=== PATIENT | female | born 1955 | race African-American/Black ===

== ENCOUNTER 2020-10-26 21:49 | Inpatient (IN) | payer MEDICAID, OTHER ==
[~2020-10-26] VITALS: Ht 167.6 cm; Wt 59.1 kg
[2020-10-27] VITALS (7 sets, daily range): BP systolic 140–185; BP diastolic 63–94
[2020-10-27] MEDS ORDERED: ONDANSETRON HCL 4MG/2ML INJ IV STA (02:28)
[2020-10-27] MEDS ORDERED: MORPHINE SULFATE 4 MG/ML CPJ (NOT FOR IM USE) IV STA (02:28)
[2020-10-27] MEDS ORDERED: VANCOMYCIN 1 G PREMIX 200 ML IV ONE (02:30)
[2020-10-27] MEDS ORDERED: SODIUM CHLORIDE 0.9% 1,000 ML IV ONE (02:30)
[2020-10-27] MEDS ORDERED: PIPERACILLIN/TAZ 3.375G PREMIX 50 ML IV ONE (02:30)
[2020-10-27 03:42] LABS: BASOPHILS % 0.5 % (0.0-2.0); CHLORIDE 99 mEq/L (98-107); EOSINOPHILS % 0.3 % (0.0-5.0); HEMATOCRIT. 34.2 % (36.0-48.0); HEMOGLOBIN. 11.5 g/dL (12.0-16.0); LYMPHOCYTES % 11.1 % (20.0-50.0); MEAN CORPUSCULAR HEMOGLOBIN 31.2 pg (28.0-32.0); MEAN CORPUSCULAR VOLUME 92.8 fL (81.0-99.0); MEAN PLATELET VOLUME 6.8 fl (7.4-10.4); MONOCYTES % 9.5 % (2.0-8.0); NEUTROPHILS % 78.6 % (40.0-76.0); PLATELET 367 x1000/uL (130-400); RED BLOOD CELL COUNT 3.68 mill/uL (4.2-5.4); RED CELL DISTRIBUTION WIDTH 13.4 % (11.6-14.6)
[2020-10-27 04:39] LABS: PROTHROMBIN TIME 10.7 sec (9.6-11.0)
[2020-10-27] MEDS ORDERED: IPRATROPIUM/ALBUTEROL 0.5-3(2.5)MG/3ML NEB NEB PRN (08:00)
[2020-10-27] MEDS ORDERED: VANCOMYCIN 1 G PREMIX 200 ML IV SCH (08:00)
[2020-10-27] MEDS ORDERED: DOCUSATE SODIUM 100MG CAPSULE PO PRN (08:00)
[2020-10-27] MEDS ORDERED: GUAIFENESIN 200MG/10ML SUGAR FREE UDC PO PRN (08:00)
[2020-10-27] MEDS ORDERED: DIPHENHYDRAMINE 50MG/ML VIAL IV PRN (08:00)
[2020-10-27] MEDS ORDERED: NA PHOS,M-B/NA PHOS,DI-BA ENEMA 118ML PR PRN (08:00)
[2020-10-27] MEDS ORDERED: ONDANSETRON HCL 4MG/2ML INJ IV PRN ×2 (08:00→18:45)
[2020-10-27] MEDS ORDERED: DEXTROSE 50% WATER 50ML SYRINGE IV PRN (08:00)
[2020-10-27] MEDS ORDERED: PIPERACILLIN/TAZ 3.375G PREMIX 50 ML IV SCH ×2 (08:00→09:00)
[2020-10-27] MEDS ORDERED: LORAZEPAM 2MG/ML CPJ IV PRN (08:00)
[2020-10-27] MEDS ORDERED: MAGNESIUM/ALUMINUM HYDROXIDE/SIMETHICONE 30ML UDC PO PRN (08:00)
[2020-10-27] MEDS ORDERED: CLONIDINE 0.1MG TABLET PO PRN (08:00)
[2020-10-27] MEDS: BLOOD SUGAR DIAGNOSTIC STRIP TEST SCH ×4 (08:29→20:02)
[2020-10-27] MEDS: INSULIN LISPRO 100 UNITS/ML SUBCUT SCH ×4 (08:34→20:53)
[2020-10-27] MEDS: ENOXAPARIN 40MG/0.4ML SYR SUBCUT SCH (08:35)
[2020-10-27] MEDS: HYDRALAZINE 20MG/ML VIAL IV PRN ×2 (08:36→16:34)
[2020-10-27] MEDS ORDERED: VANCOMYCIN 750 MG PREMIX 150 ML IV SCH (09:00)
[2020-10-27] MEDS: HYDROCODONE/ACETAMINOPHEN 5/325MG TABLET PO PRN (11:08)
[2020-10-27] MEDS: SODIUM CHLORIDE 0.9% INJ 3ML FLUSH IVF SCH ×2 (14:25→21:22)
[2020-10-27] MEDS ORDERED: BENA10TA74 MT (14:51)
[2020-10-27] MEDS ORDERED: ALEN35TA MT (14:51)
[2020-10-27] MEDS ORDERED: ANAS1TAB49 MT (14:52)
[2020-10-27] MEDS ORDERED: ASPI-986 MT (14:53)
[2020-10-27] MEDS ORDERED: HYDR25TA MT (14:53)
[2020-10-27] MEDS ORDERED: ASPI-1497 PO (14:53)
[2020-10-27] MEDS ORDERED: NAPR375T5 MT (14:53)
[2020-10-27] MEDS ORDERED: GLIM1TAB MT (14:55)
[2020-10-27] MEDS ORDERED: AMLO10TA80 PO (14:55)
[2020-10-27] MEDS ORDERED: GABA-529 MT (14:55)
[2020-10-27] MEDS ORDERED: LIDOCAINE HCL 1% 20ML VIAL (Pyxis) INJ ONE (14:57)
[2020-10-27] MEDS ORDERED: BACITRACIN 50,000 UNITS/VIAL ONE (14:58)
[2020-10-27] MEDS ORDERED: BUPIVACAINE HCL/PF 0.5% (5MG/ML) 10ML ONE (14:58)
[2020-10-27] MEDS ORDERED: *PATIENT'S OWN MEDICATION STORAGE XX SCH (15:15)
[2020-10-27] MEDS: PIPERACILLIN/TAZOBACTAM 3.375 G in DEXT 5% WATER 100 ML IV SCH ×2 (16:30→21:13)
[2020-10-27] MEDS ORDERED: FENTANYL CITRATE/PF 50MCG/ML 2ML VIAL ONE (17:45)
[2020-10-27] MEDS ORDERED: MIDAZOLAM HCL 2 MG/2 ML VIAL ONE (17:45)
[2020-10-27] MEDS ORDERED: PROPOFOL 200MG/20ML VIAL IV ONE (17:45)
[2020-10-27] MEDS: VANCOMYCIN 750 MG PREMIX 150 ML IV SCH (18:00)
[2020-10-27] MEDS ORDERED: MEPERIDINE HCL/PF 25MG/ML CPJ IV PRN (18:45)
[2020-10-27] MEDS ORDERED: LABETALOL 5MG/ML SYR 20 MG/4 ML SYRINGE IV PRN (18:45)
[2020-10-27] MEDS ORDERED: HYDROMORPHONE HCL/PF 2MG/ML CPJ IV PRN (18:45)
[2020-10-27] MEDS ORDERED: ONDANSETRON HCL 4MG/2ML INJ ONE (18:55)
[2020-10-27] MEDS ORDERED: DEXAMETHASONE 4MG/ML 1ML VIAL ONE (18:55)
[2020-10-27 21:47] LABS: CREATINE KINASE 67 IU/L (26-192)
[2020-10-27 21:48] LABS: CREATINE KINASE MB FRACTION < 1.0 ng/mL (0.5-3.6)
[2020-10-27] MEDS: MORPHINE SULFATE 2 MG/ML CPJ (NOT FOR IM USE) IV PRN (22:49)
[2020-10-28] VITALS (12 sets, daily range): BP systolic 139–180; BP diastolic 66–91
[2020-10-28] MEDS: PIPERACILLIN/TAZOBACTAM 3.375 G in DEXT 5% WATER 100 ML IV SCH ×3 (03:05→20:40)
[2020-10-28] MEDS: VANCOMYCIN 750 MG PREMIX 150 ML IV SCH ×2 (05:46→21:25)
[2020-10-28] MEDS: SODIUM CHLORIDE 0.9% INJ 3ML FLUSH IVF SCH ×2 (05:47→13:01)
[2020-10-28] MEDS: BLOOD SUGAR DIAGNOSTIC STRIP TEST SCH ×4 (05:58→20:37)
[2020-10-28 06:21] LABS: BASOPHILS % 0.8 % (0.0-2.0); EOSINOPHILS % 0.2 % (0.0-5.0); HEMATOCRIT. 31.1 % (36.0-48.0); HEMOGLOBIN. 10.7 g/dL (12.0-16.0); LYMPHOCYTES % 12.2 % (20.0-50.0); MEAN CORPUSCULAR HEMOGLOBIN 31.8 pg (28.0-32.0); MEAN CORPUSCULAR VOLUME 92.4 fL (81.0-99.0); MEAN PLATELET VOLUME 6.4 fl (7.4-10.4); NEUTROPHILS % 77.8 % (40.0-76.0); PLATELET 345 x1000/uL (130-400); RED BLOOD CELL COUNT 3.37 mill/uL (4.2-5.4); RED CELL DISTRIBUTION WIDTH 13.4 % (11.6-14.6)
[2020-10-28 06:29] LABS: CHLORIDE 102 mEq/L (98-107)
[2020-10-28 06:39] LABS: LDL CHOLESTEROL 60 mg/dL (5-100)
[2020-10-28 06:40] LABS: CREATINE KINASE 51 IU/L (26-192); CREATINE KINASE MB FRACTION < 1.0 ng/mL (0.5-3.6); HDL CHOLESTEROL 69 mg/dL (40-59); T4 FREE 1.16 ng/dL (0.76-1.46)
[2020-10-28] MEDS: ENOXAPARIN 40MG/0.4ML SYR SUBCUT SCH (09:11)
[2020-10-28] MEDS: INSULIN LISPRO 100 UNITS/ML SUBCUT SCH ×4 (09:11→21:06)
[2020-10-28] MEDS: MORPHINE SULFATE 2 MG/ML CPJ (NOT FOR IM USE) IV PRN (09:16)
[2020-10-28] MEDS: HYDROCODONE/ACETAMINOPHEN 5/325MG TABLET PO PRN ×3 (11:48→21:21)
[2020-10-28] MEDS: AMLODIPINE 10MG TABLET PO SCH (11:51)
[2020-10-28] MEDS: BENAZEPRIL 10MG TABLET PO SCH (11:51)
[2020-10-28] MEDS: GABAPENTIN 100MG CAPSULE PO SCH ×3 (11:51→17:36)
[2020-10-28] MEDS: HYDROCHLOROTHIAZIDE 25MG TABLET PO SCH (11:52)
[2020-10-28] MEDS: INSULIN GLARGINE UD 100 UNITS/ML SYR SUBCUT SCH (11:56)
[2020-10-28] MEDS ORDERED: TETANUS, DIPHTHERIA, PERTUSSIS VAC/PF 0.5ML (>7YR OLD) IM ONE (14:30)
[2020-10-29] VITALS (13 sets, daily range): BP systolic 118–166; BP diastolic 78–116
[2020-10-29] MEDS: HYDROCODONE/ACETAMINOPHEN 5/325MG TABLET PO PRN ×5 (01:24→20:10)
[2020-10-29] MEDS: SODIUM CHLORIDE 0.9% INJ 3ML FLUSH IVF SCH ×4 (03:33→21:37)
[2020-10-29] MEDS: PIPERACILLIN/TAZOBACTAM 3.375 G in DEXT 5% WATER 100 ML IV SCH ×4 (03:33→21:00)
[2020-10-29] MEDS: BLOOD SUGAR DIAGNOSTIC STRIP TEST SCH ×4 (06:29→20:41)
[2020-10-29 07:28] LABS: BASOPHILS % 0.3 % (0.0-2.0); EOSINOPHILS % 0.6 % (0.0-5.0); HEMATOCRIT. 31.2 % (36.0-48.0); HEMOGLOBIN. 10.7 g/dL (12.0-16.0); LYMPHOCYTES % 16.6 % (20.0-50.0); MEAN CORPUSCULAR HEMOGLOBIN 31.5 pg (28.0-32.0); MEAN CORPUSCULAR VOLUME 92.1 fL (81.0-99.0); MEAN PLATELET VOLUME 6.8 fl (7.4-10.4); NEUTROPHILS % 72.5 % (40.0-76.0); PLATELET 350 x1000/uL (130-400); RED BLOOD CELL COUNT 3.39 mill/uL (4.2-5.4); RED CELL DISTRIBUTION WIDTH 13.4 % (11.6-14.6)
[2020-10-29 08:01] LABS: CHLORIDE 101 mEq/L (98-107)
[2020-10-29] MEDS: VANCOMYCIN 750 MG PREMIX 150 ML IV SCH (09:28)
[2020-10-29] MEDS: GABAPENTIN 100MG CAPSULE PO SCH ×3 (09:28→17:28)
[2020-10-29] MEDS: ENOXAPARIN 40MG/0.4ML SYR SUBCUT SCH (09:29)
[2020-10-29] MEDS: AMLODIPINE 10MG TABLET PO SCH (09:30)
[2020-10-29] MEDS: BENAZEPRIL 10MG TABLET PO SCH (09:30)
[2020-10-29] MEDS: INSULIN LISPRO 100 UNITS/ML SUBCUT SCH ×4 (09:31→21:30)
[2020-10-29] MEDS: HYDROCHLOROTHIAZIDE 25MG TABLET PO SCH (09:36)
[2020-10-29] MEDS: INSULIN GLARGINE UD 100 UNITS/ML SYR SUBCUT SCH (12:39)
[2020-10-29 16:00] LABS: CHLORIDE 99 mEq/L (98-107)
[2020-10-29] MEDS ORDERED: VANCOMYCIN 750 MG PREMIX 150 ML IV SCH (17:00)
[2020-10-29] MEDS: VANCOMYCIN 1 G PREMIX 200 ML IV SCH (21:36)
[2020-10-30] VITALS (12 sets, daily range): BP systolic 106–159; BP diastolic 40–88
[2020-10-30] MEDS: HYDROCODONE/ACETAMINOPHEN 5/325MG TABLET PO PRN ×4 (01:32→21:41)
[2020-10-30] MEDS: PIPERACILLIN/TAZOBACTAM 3.375 G in DEXT 5% WATER 100 ML IV SCH ×2 (04:12→10:26)
[2020-10-30] MEDS: BLOOD SUGAR DIAGNOSTIC STRIP TEST SCH ×4 (06:50→21:00)
[2020-10-30] MEDS: SODIUM CHLORIDE 0.9% INJ 3ML FLUSH IVF SCH ×3 (07:02→22:22)
[2020-10-30] MEDS: VANCOMYCIN 1 G PREMIX 200 ML IV SCH ×2 (09:21→21:27)
[2020-10-30] MEDS: ENOXAPARIN 40MG/0.4ML SYR SUBCUT SCH (09:21)
[2020-10-30] MEDS: HYDROCHLOROTHIAZIDE 25MG TABLET PO SCH (09:22)
[2020-10-30] MEDS: AMLODIPINE 10MG TABLET PO SCH (09:22)
[2020-10-30] MEDS: GABAPENTIN 100MG CAPSULE PO SCH ×3 (09:22→18:15)
[2020-10-30] MEDS: BENAZEPRIL 10MG TABLET PO SCH (09:22)
[2020-10-30] MEDS: ACETAMINOPHEN 325MG TABLET PO PRN (09:23)
[2020-10-30] MEDS: INSULIN LISPRO 100 UNITS/ML SUBCUT SCH ×4 (09:24→21:22)
[2020-10-30] MEDS ORDERED: IOHEXOL-350 100 ML BOTTLE ONE ×2 (10:12→15:00)
[2020-10-30] MEDS: INSULIN GLARGINE UD 100 UNITS/ML SYR SUBCUT SCH (10:28)
[2020-10-30] MEDS: CEFTRIAXONE 2 G in DEXTROSE 5% WATER 50 ML IV SCH (16:46)
[2020-10-30] MEDS: METRONIDAZOLE 500MG TABLET PO SCH (21:27)
[2020-10-31] VITALS (9 sets, daily range): BP systolic 123–152; BP diastolic 62–79
[2020-10-31] MEDS: ACETAMINOPHEN 325MG TABLET PO PRN ×2 (00:38→09:56)
[2020-10-31] MEDS: HYDROCODONE/ACETAMINOPHEN 5/325MG TABLET PO PRN ×4 (02:14→21:20)
[2020-10-31] MEDS: SODIUM CHLORIDE 0.9% INJ 3ML FLUSH IVF SCH ×3 (06:10→21:20)
[2020-10-31 06:41] LABS: HEMATOCRIT 30.3 % (36.0-48.0); HEMOGLOBIN 10.4 g/dL (12.0-16.0); MEAN CORPUSCULAR HEMOGLOBIN 31.5 pg (28.0-32.0); MEAN CORPUSCULAR VOLUME 91.8 fL (81.0-99.0); PLATELET 401 x1000/uL (130-400); RED BLOOD CELL COUNT 3.31 mill/uL (4.2-5.4); RED CELL DISTRIBUTION WIDTH 13.1 % (11.6-14.6)
[2020-10-31] MEDS: BLOOD SUGAR DIAGNOSTIC STRIP TEST SCH ×4 (06:50→20:25)
[2020-10-31 07:00] LABS: CHLORIDE 99 mEq/L (98-107)
[2020-10-31] MEDS: GABAPENTIN 100MG CAPSULE PO SCH ×3 (09:32→17:01)
[2020-10-31] MEDS: HYDROCHLOROTHIAZIDE 25MG TABLET PO SCH (09:32)
[2020-10-31] MEDS: AMLODIPINE 10MG TABLET PO SCH (09:32)
[2020-10-31] MEDS: METRONIDAZOLE 500MG TABLET PO SCH ×2 (09:32→21:20)
[2020-10-31] MEDS: BENAZEPRIL 10MG TABLET PO SCH (09:32)
[2020-10-31] MEDS: ENOXAPARIN 40MG/0.4ML SYR SUBCUT SCH (09:33)
[2020-10-31] MEDS: CEFTRIAXONE 2 G in DEXTROSE 5% WATER 50 ML IV SCH (09:33)
[2020-10-31] MEDS: INSULIN LISPRO 100 UNITS/ML SUBCUT SCH ×4 (10:35→21:16)
[2020-10-31] MEDS: INSULIN GLARGINE UD 100 UNITS/ML SYR SUBCUT SCH (10:50)
[2020-10-31] MEDS: VANCOMYCIN 1 G PREMIX 200 ML IV SCH ×2 (11:48→21:20)
[2020-11-01] VITALS (12 sets, daily range): BP systolic 105–168; BP diastolic 54–86
[2020-11-01] MEDS: ACETAMINOPHEN 325MG TABLET PO PRN ×3 (00:28→21:01)
[2020-11-01] MEDS: BLOOD SUGAR DIAGNOSTIC STRIP TEST SCH ×4 (06:38→20:55)
[2020-11-01] MEDS: SODIUM CHLORIDE 0.9% INJ 3ML FLUSH IVF SCH ×3 (06:43→23:08)
[2020-11-01] MEDS: INSULIN LISPRO 100 UNITS/ML SUBCUT SCH ×4 (06:44→21:21)
[2020-11-01] MEDS: HYDROCODONE/ACETAMINOPHEN 5/325MG TABLET PO PRN ×2 (06:44→18:32)
[2020-11-01] MEDS: VANCOMYCIN 1 G PREMIX 200 ML IV SCH ×2 (09:48→21:20)
[2020-11-01] MEDS: CEFTRIAXONE 2 G in DEXTROSE 5% WATER 50 ML IV SCH (09:48)
[2020-11-01] MEDS: GABAPENTIN 100MG CAPSULE PO SCH ×3 (09:49→17:39)
[2020-11-01] MEDS: ENOXAPARIN 40MG/0.4ML SYR SUBCUT SCH (09:50)
[2020-11-01] MEDS: HYDROCHLOROTHIAZIDE 25MG TABLET PO SCH (09:50)
[2020-11-01] MEDS: BENAZEPRIL 10MG TABLET PO SCH (09:50)
[2020-11-01] MEDS: AMLODIPINE 10MG TABLET PO SCH (09:50)
[2020-11-01] MEDS: METRONIDAZOLE 500MG TABLET PO SCH ×2 (09:53→21:01)
[2020-11-01] MEDS: INSULIN GLARGINE UD 100 UNITS/ML SYR SUBCUT SCH (10:00)
[2020-11-01] MEDS ORDERED: INSULIN GLARGINE UD 100 UNITS/ML SYR SUBCUT NR ×2 (17:15→20:00)
[2020-11-01] MEDS ORDERED: INSULIN LISPRO 100 UNITS/ML SUBCUT ONE (17:30)
[2020-11-01 20:45] LABS: CHLORIDE 97 mEq/L (98-107)
[2020-11-02] VITALS (7 sets, daily range): BP systolic 107–133; BP diastolic 56–73
[2020-11-02] MEDS: HYDROCODONE/ACETAMINOPHEN 5/325MG TABLET PO PRN (00:42)
[2020-11-02] MEDS: SODIUM CHLORIDE 0.9% INJ 3ML FLUSH IVF SCH ×2 (06:28→14:00)
[2020-11-02] MEDS: BLOOD SUGAR DIAGNOSTIC STRIP TEST SCH ×2 (06:35→11:50)
[2020-11-02] MEDS: INSULIN LISPRO 100 UNITS/ML SUBCUT SCH ×2 (07:20→12:20)
[2020-11-02] MEDS: ACETAMINOPHEN 325MG TABLET PO PRN ×2 (07:59→14:50)
[2020-11-02] MEDS: METRONIDAZOLE 500MG TABLET PO SCH (09:00)
[2020-11-02] MEDS: BENAZEPRIL 10MG TABLET PO SCH (11:59)
[2020-11-02] MEDS: HYDROCHLOROTHIAZIDE 25MG TABLET PO SCH (11:59)
[2020-11-02] MEDS: GABAPENTIN 100MG CAPSULE PO SCH ×2 (11:59→13:00)
[2020-11-02] MEDS: CEFTRIAXONE 2 G in DEXTROSE 5% WATER 50 ML IV SCH (11:59)
[2020-11-02] MEDS: ENOXAPARIN 40MG/0.4ML SYR SUBCUT SCH (12:00)
[2020-11-02] MEDS: AMLODIPINE 10MG TABLET PO SCH (12:00)
[2020-11-02] MEDS: INSULIN GLARGINE UD 100 UNITS/ML SYR SUBCUT SCH (12:01)
[2021-02-14] MEDS ORDERED: ASPI-986 MT (19:10)
[2021-02-14] MEDS ORDERED: DIPH25CA83 MT (19:10)
[2021-02-14] MEDS ORDERED: GLIP5TAB12 PO (19:10)
[2021-02-14] MEDS ORDERED: METF-414 MT (19:10)
== END 2020-11-02 15:30 | disposition home health service (06) | DRG 314 ==
LOC: ER 21:49 → 3WST 10-27 06:17 → ENRESERV 10-27 09:27
PROVIDERS: ADMIT Internal Medicine; ATTEND Internal Medicine
PROC: 0Y6R0Z0 Detachment at Right 2nd Toe, Complete, Open Approach (ICD-10-PCS; principal; 2020-10-27)
PROC: 02HV33Z Insertion of Infusion Device into Superior Vena Cava, Percutaneous Approach (ICD-10-PCS; 2020-11-01)
PROC: B548ZZA Ultrasonography of Superior Vena Cava, Guidance (ICD-10-PCS; 2020-11-01)
PROC: B5181ZA Fluoroscopy of Superior Vena Cava using Low Osmolar Contrast, Guidance (ICD-10-PCS; 2020-11-01)
DX: E11.52 Type 2 diabetes mellitus with diabetic peripheral angiopathy with gangrene (principal); A48.0 Gas gangrene; E43 Unspecified severe protein-calorie malnutrition; E11.51 Type 2 diabetes mellitus with diabetic peripheral angiopathy without gangrene; E11.40 Type 2 diabetes mellitus with diabetic neuropathy, unspecified; E11.65 Type 2 diabetes mellitus with hyperglycemia; F17.200 Nicotine dependence, unspecified, uncomplicated; F41.9 Anxiety disorder, unspecified; I10 Essential (primary) hypertension; L03.115 Cellulitis of right lower limb; R65.10 Systemic inflammatory response syndrome (SIRS) of non-infectious origin without acute organ dysfunction; K59.00 Constipation, unspecified; M81.0 Age-related osteoporosis without current pathological fracture; Z79.4 Long term (current) use of insulin; Z90.11 Acquired absence of right breast and nipple; Z85.3 Personal history of malignant neoplasm of breast; Z91.14 Patient's other noncompliance with medication regimen; Z79.899 Other long term (current) drug therapy; Z79.84 Long term (current) use of oral hypoglycemic drugs; Z68.21 Body mass index [BMI] 21.0-21.9, adult; Z79.82 Long term (current) use of aspirin; Z20.828 Contact with and (suspected) exposure to other viral communicable diseases
CPT/HCPCS: 36415; 36573; 73630; 73718; 75635; 80048; 80053; 80061; 80202; 82550; 82553; 82962; 83605; 83735; 84145; 84439; 84443; 84484; 85025; 85027; 85651; 86140; 87070; 87075; 87077; 87186; 87426; 88305; 88311; 90715; 93923; 93970; 97022; 97116; 97162; 97530; 99291; C1725; C1769; J0360; J0696; J1100; J1650; J1815; J2060; J2250; J2270; J2405; J2543; J2704; J3010; J3370; J3490; J7030; J7060; Q9967

== ENCOUNTER 2022-10-17 14:18 | Emergency (ER) | payer MEDICAID ==
[~2022-10-17] VITALS: Ht 165.1 cm; Wt 60.0 kg
[~2022-10-17 14:18] MED LIST: ALEN35TA52 MT; AMLO10TA80 PO; ANAS1TAB49 MT; ASPI-1497 PO; ASPI-986 MT; BENA10TA74 MT; DIPH25CA83 MT; GABA-529 MT; GLIP5TAB12 PO; HYDR25TA MT; METF-414 MT; NAPR375T5 MT
[2022-10-17 14:21] VITALS: BP 141/100
== END 2022-10-17 21:28 | disposition left against medical advice (07) ==
LOC: ER 14:18
DX: I96 Gangrene, not elsewhere classified (principal); F12.10 Cannabis abuse, uncomplicated; E11.9 Type 2 diabetes mellitus without complications; I11.0 Hypertensive heart disease with heart failure; I50.9 Heart failure, unspecified; Z79.899 Other long term (current) drug therapy
CPT/HCPCS: 99281

== ENCOUNTER 2022-10-18 08:48 | Inpatient (IN) | payer MEDICAID ==
[~2022-10-18] VITALS: Ht 167.6 cm; Wt 87.3 kg
[2022-10-18] MEDS ORDERED: VANCOMYCIN 1G PREMIX 200 ML IV ONE (09:45)
[2022-10-18] MEDS ORDERED: PIPERACILLIN/TAZ 3.375G PREMIX 50 ML IV ONE (09:45)
[2022-10-18 10:01] LABS: CHLORIDE 104 mEq/L (98-107)
[2022-10-18 10:45] LABS: BASOPHILS % 0.2 % (0.0-2.0); HEMATOCRIT. 23.5 % (36.0-48.0); LYMPHOCYTES % 8.7 % (20.0-50.0); MEAN CORPUSCULAR HEMOGLOBIN 31.1 pg (28.0-32.0); MEAN CORPUSCULAR VOLUME 91.8 fL (81.0-99.0); MEAN PLATELET VOLUME 5.9 fl (7.4-10.4); MONOCYTES % 7.4 % (2.0-8.0); NEUTROPHILS % 82.7 % (40.0-76.0); PLATELET 524 x1000/uL (130-400); RED BLOOD CELL COUNT 2.56 mill/uL (4.2-5.4); RED CELL DISTRIBUTION WIDTH 14.4 % (11.6-14.6)
[2022-10-18 10:51] LABS: INR 1.1; PROTHROMBIN TIME 11.5 sec (9.6-11.0)
[2022-10-18] MEDS ORDERED: AMLODIPINE 10MG TABLET PO ONE (12:15)
[2022-10-18] MEDS ORDERED: IPRATROPIUM/ALBUTEROL 0.5-3(2.5)MG/3ML NEB HHN PRN (14:15)
[2022-10-18] MEDS ORDERED: ONDANSETRON HCL 4MG/2ML INJ IV PRN (14:15)
[2022-10-18] MEDS ORDERED: DIPHENHYDRAMINE 50MG/ML VIAL IV PRN (14:15)
[2022-10-18] MEDS ORDERED: SODIUM POLYSTYRENE SULFONATE 15 G/60 ML BOT PO NR (14:15)
[2022-10-18] MEDS ORDERED: PIPERACILLIN/TAZ 3.375G PREMIX 50 ML IV NR ×2 (14:15→21:30)
[2022-10-18] MEDS ORDERED: DEXTROSE 50% WATER 50ML SYRINGE IV PRN (16:15)
[2022-10-18] MEDS: INSULIN LISPRO 100 UNITS/ML SUBCUT SCH ×2 (17:37→20:44)
[2022-10-18] MEDS: CLONIDINE 0.1MG TABLET PO PRN (17:38)
[2022-10-18] MEDS: BLOOD SUGAR DIAGNOSTIC STRIP TEST SCH ×2 (17:38→20:44)
[2022-10-18] MEDS: GABAPENTIN 100MG CAPSULE PO SCH (17:39)
[2022-10-18] MEDS: METFORMIN HCL 500MG TABLET PO SCH (17:39)
[2022-10-18] MEDS: DIPHENHYDRAMINE 25MG CAPSULE PO SCH (22:03)
[2022-10-19 05:12] LABS: BASOPHILS % 0.2 % (0.0-2.0); EOSINOPHILS % 1.7 % (0.0-5.0); HEMATOCRIT. 23.2 % (36.0-48.0); HEMOGLOBIN. 7.9 g/dL (12.0-16.0); LYMPHOCYTES % 15.3 % (20.0-50.0); MEAN CORPUSCULAR HEMOGLOBIN 30.9 pg (28.0-32.0); MEAN CORPUSCULAR VOLUME 90.6 fL (81.0-99.0); MONOCYTES % 9.4 % (2.0-8.0); NEUTROPHILS % 73.4 % (40.0-76.0); PLATELET 527 x1000/uL (130-400); RED BLOOD CELL COUNT 2.57 mill/uL (4.2-5.4); RED CELL DISTRIBUTION WIDTH 14.3 % (11.6-14.6)
[2022-10-19 05:28] LABS: CHLORIDE 107 mEq/L (98-107)
[2022-10-19] MEDS ORDERED: PIPERACILLIN/TAZOBACTAM 3.375 G in DEXTROSE 5% WATER 50 ML IV SCH (06:00)
[2022-10-19] MEDS ORDERED: ALENDRONATE SODIUM 35MG TABLET PO SCH (06:30)
[2022-10-19] MEDS: BLOOD SUGAR DIAGNOSTIC STRIP TEST SCH ×4 (08:00→21:30)
[2022-10-19] MEDS ORDERED: VANCOMYCIN 750MG PREMIX 150 ML IV SCH (08:00)
[2022-10-19] MEDS: GLIPIZIDE 5MG TABLET PO SCH (08:14)
[2022-10-19] MEDS: METFORMIN HCL 500MG TABLET PO SCH ×2 (08:14→16:52)
[2022-10-19] MEDS ORDERED: HYDROCHLOROTHIAZIDE 25MG TABLET PO SCH (09:00)
[2022-10-19] MEDS ORDERED: BENAZEPRIL 10MG TABLET PO SCH (09:00)
[2022-10-19] MEDS: INSULIN LISPRO 100 UNITS/ML SUBCUT SCH ×4 (09:15→21:30)
[2022-10-19] MEDS: AMLODIPINE 10MG TABLET PO SCH (09:39)
[2022-10-19] MEDS: GABAPENTIN 100MG CAPSULE PO SCH ×3 (09:39→16:52)
[2022-10-19] MEDS: ANASTROZOLE 1 MG TABLET PO SCH (09:59)
[2022-10-19] MEDS ORDERED: VANCOMYCIN 1G PREMIX 200 ML IV NR (10:00)
[2022-10-19 12:00] VITALS: BP 164/78
[2022-10-19] MEDS: CLONIDINE 0.1MG TABLET PO PRN ×2 (12:35→18:35)
[2022-10-19] MEDS: ACETAMINOPHEN 325MG TABLET PO PRN (15:45)
[2022-10-19 16:00] VITALS: BP 166/73
[2022-10-19] MEDS: PIPERACILLIN/TAZOBACTAM 3.375 G in DEXTROSE 5% WATER 50 ML IV SCH ×2 (17:03→21:29)
[2022-10-19 20:00] VITALS: BP 135/50
[2022-10-19] MEDS: DIPHENHYDRAMINE 25MG CAPSULE PO SCH (21:29)
[2022-10-20] VITALS: BP 157/70
[2022-10-20 04:00] VITALS: BP 152/70
[2022-10-20] MEDS: BLOOD SUGAR DIAGNOSTIC STRIP TEST SCH ×4 (06:16→21:08)
[2022-10-20] MEDS: METFORMIN HCL 500MG TABLET PO SCH (06:16)
[2022-10-20] MEDS: GLIPIZIDE 5MG TABLET PO SCH (06:16)
[2022-10-20] MEDS: PIPERACILLIN/TAZOBACTAM 3.375 G in DEXTROSE 5% WATER 50 ML IV SCH ×3 (06:16→22:41)
[2022-10-20] MEDS: INSULIN LISPRO 100 UNITS/ML SUBCUT SCH ×4 (06:17→21:00)
[2022-10-20] MEDS: ACETAMINOPHEN 325MG TABLET PO PRN (06:25)
[2022-10-20 08:00] VITALS: BP 147/63
[2022-10-20] MEDS: GABAPENTIN 100MG CAPSULE PO SCH ×3 (10:56→18:05)
[2022-10-20] MEDS: AMLODIPINE 10MG TABLET PO SCH (10:56)
[2022-10-20] MEDS: ANASTROZOLE 1 MG TABLET PO SCH (11:20)
[2022-10-20 11:22] LABS: BASOPHILS % 0.4 % (0.0-2.0); EOSINOPHILS % 2.4 % (0.0-5.0); HEMATOCRIT. 22.4 % (36.0-48.0); HEMOGLOBIN. 7.6 g/dL (12.0-16.0); LYMPHOCYTES % 16.9 % (20.0-50.0); MEAN CORPUSCULAR HEMOGLOBIN 31.3 pg (28.0-32.0); MEAN CORPUSCULAR VOLUME 91.8 fL (81.0-99.0); MEAN PLATELET VOLUME 6.2 fl (7.4-10.4); MONOCYTES % 10.1 % (2.0-8.0); NEUTROPHILS % 70.2 % (40.0-76.0); PLATELET 513 x1000/uL (130-400); RED BLOOD CELL COUNT 2.44 mill/uL (4.2-5.4); RED CELL DISTRIBUTION WIDTH 14.5 % (11.6-14.6)
[2022-10-20] MEDS: SODIUM CHLORIDE 0.9% 1,000 ML IV SCH ×2 (11:26→22:41)
[2022-10-20] MEDS ORDERED: NALOXONE HCL 0.4MG/ML VIAL IV PRN (11:30)
[2022-10-20] MEDS: HYDROCODONE/ACETAMINOPHEN 5/325MG TABLET PO PRN ×2 (11:44→18:29)
[2022-10-20 12:00] VITALS: BP 161/75
[2022-10-20] MEDS ORDERED: IODIXANOL 320MG/ML 100 ML BOTTLE IV ONE (13:04)
[2022-10-20] MEDS ORDERED: LIDOCAINE HCL/PF 1% 10 MG/ML 5ML VIAL ONE (13:05)
[2022-10-20] MEDS ORDERED: FENTANYL CITRATE/PF 50MCG/ML 2ML VIAL ONE (13:05)
[2022-10-20] MEDS ORDERED: HEPARIN 1000 UNITS/ML 10ML ONE ×2 (13:05→13:12)
[2022-10-20] MEDS ORDERED: MIDAZOLAM HCL 2 MG/2 ML VIAL ONE (13:05)
[2022-10-20] MEDS ORDERED: LIDOCAINE HCL/PF 2% 20MG/ML 5 ML/VIAL ONE (13:12)
[2022-10-20] MEDS: CLOPIDOGREL 75MG TABLET PO SCH (14:45)
[2022-10-20 16:00] VITALS: BP 112/65
[2022-10-20] MEDS: CLONIDINE 0.1MG TABLET PO PRN (18:31)
[2022-10-20 20:00] VITALS: BP 149/68
[2022-10-20] MEDS: DIPHENHYDRAMINE 25MG CAPSULE PO SCH (21:02)
[2022-10-20] MEDS ORDERED: VANCOMYCIN 750MG PREMIX 150 ML IV SCH (22:00)
[2022-10-21] VITALS: BP 158/74
[2022-10-21 04:00] VITALS: BP 166/72
[2022-10-21] MEDS: PIPERACILLIN/TAZOBACTAM 3.375 G in DEXTROSE 5% WATER 50 ML IV SCH ×2 (05:43→13:19)
[2022-10-21 05:54] LABS: BASOPHILS % 0.2 % (0.0-2.0); EOSINOPHILS % 2.4 % (0.0-5.0); HEMOGLOBIN. 7.6 g/dL (12.0-16.0); LYMPHOCYTES % 17.4 % (20.0-50.0); MEAN CORPUSCULAR HEMOGLOBIN 31.6 pg (28.0-32.0); MEAN CORPUSCULAR VOLUME 91.2 fL (81.0-99.0); MEAN PLATELET VOLUME 6.4 fl (7.4-10.4); MONOCYTES % 9.2 % (2.0-8.0); NEUTROPHILS % 70.8 % (40.0-76.0); PLATELET 490 x1000/uL (130-400); RED BLOOD CELL COUNT 2.41 mill/uL (4.2-5.4); RED CELL DISTRIBUTION WIDTH 14.5 % (11.6-14.6)
[2022-10-21] MEDS: BLOOD SUGAR DIAGNOSTIC STRIP TEST SCH ×4 (06:30→21:17)
[2022-10-21] MEDS: INSULIN LISPRO 100 UNITS/ML SUBCUT SCH ×4 (06:30→21:00)
[2022-10-21 08:26] VITALS: BP 162/67
[2022-10-21] MEDS: AMLODIPINE 10MG TABLET PO SCH (08:27)
[2022-10-21] MEDS: CLOPIDOGREL 75MG TABLET PO SCH (08:27)
[2022-10-21] MEDS: GABAPENTIN 100MG CAPSULE PO SCH ×3 (08:27→17:07)
[2022-10-21] MEDS: ANASTROZOLE 1 MG TABLET PO SCH (09:00)
[2022-10-21] MEDS: SODIUM CHLORIDE 0.9% 1,000 ML IV SCH (11:08)
[2022-10-21 12:00] VITALS: BP 148/72
[2022-10-21] MEDS: HYDROCODONE/ACETAMINOPHEN 5/325MG TABLET PO PRN ×2 (13:19→21:02)
[2022-10-21 16:20] VITALS: BP 163/68
[2022-10-21 19:30] LABS: CREATINE KINASE 52 IU/L (26-192)
[2022-10-21 20:00] VITALS: BP 177/80
[2022-10-21] MEDS: DIPHENHYDRAMINE 25MG CAPSULE PO SCH (21:16)
[2022-10-21] MEDS: CLONIDINE 0.1MG TABLET PO PRN (21:16)
[2022-10-22] VITALS (7 sets, daily range): BP systolic 115–176; BP diastolic 58–78
[2022-10-22] MEDS ORDERED: VANCOMYCIN 500MG PREMIX 100 ML IV SCH
[2022-10-22] MEDS: PIPERACILLIN/TAZOBACTAM 3.375 G in DEXTROSE 5% WATER 50 ML IV SCH ×3 (01:11→13:07)
[2022-10-22] MEDS: ACETAMINOPHEN 325MG TABLET PO PRN (01:22)
[2022-10-22] MEDS: SODIUM CHLORIDE 0.9% 1,000 ML IV SCH ×2 (01:35→12:39)
[2022-10-22] MEDS: INSULIN LISPRO 100 UNITS/ML SUBCUT SCH ×4 (06:23→21:00)
[2022-10-22] MEDS: HYDROCODONE/ACETAMINOPHEN 5/325MG TABLET PO PRN ×3 (06:24→17:38)
[2022-10-22] MEDS: CLONIDINE 0.1MG TABLET PO PRN ×3 (06:24→21:05)
[2022-10-22] MEDS: BLOOD SUGAR DIAGNOSTIC STRIP TEST SCH ×4 (06:27→21:05)
[2022-10-22 07:13] LABS: BASOPHILS % 0.6 % (0.0-2.0); EOSINOPHILS % 3.4 % (0.0-5.0); LYMPHOCYTES % 17.5 % (20.0-50.0); MEAN CORPUSCULAR HEMOGLOBIN 31.1 pg (28.0-32.0); MEAN CORPUSCULAR VOLUME 92.8 fL (81.0-99.0); MEAN PLATELET VOLUME 6.1 fl (7.4-10.4); MONOCYTES % 9.4 % (2.0-8.0); NEUTROPHILS % 69.1 % (40.0-76.0); PLATELET 437 x1000/uL (130-400); RED BLOOD CELL COUNT 2.17 mill/uL (4.2-5.4); RED CELL DISTRIBUTION WIDTH 14.6 % (11.6-14.6)
[2022-10-22 07:57] LABS: HEMATOCRIT. 20.1 % (36.0-48.0); HEMOGLOBIN. 6.7 g/dL (12.0-16.0)
[2022-10-22] MEDS: ANASTROZOLE 1 MG TABLET PO SCH (09:00)
[2022-10-22] MEDS: CLOPIDOGREL 75MG TABLET PO SCH (09:29)
[2022-10-22] MEDS: AMLODIPINE 10MG TABLET PO SCH (09:29)
[2022-10-22] MEDS: GABAPENTIN 100MG CAPSULE PO SCH ×3 (09:30→17:37)
[2022-10-22] MEDS ORDERED: VANCOMYCIN 750MG PREMIX 150 ML IV SCH (18:00)
[2022-10-22 19:40] LABS: TOTAL IRON BINDING CAPACITY 123 ug/dL (250-450)
[2022-10-22] MEDS: DIPHENHYDRAMINE 25MG CAPSULE PO SCH (21:05)
[2022-10-22] MEDS: CEFAZOLIN 2,000 MG in DEXT 5% WATER 100 ML IV SCH (21:15)
[2022-10-23] VITALS: BP 157/64
[2022-10-23] MEDS: SODIUM CHLORIDE 0.9% 1,000 ML IV SCH ×2 (01:08→12:45)
[2022-10-23] MEDS: ACETAMINOPHEN 500MG TABLET PO PRN (01:48)
[2022-10-23] MEDS: CEFAZOLIN 2,000 MG in DEXT 5% WATER 100 ML IV SCH ×3 (03:58→20:20)
[2022-10-23 04:00] VITALS: BP 175/76
[2022-10-23] MEDS: HYDROCODONE/ACETAMINOPHEN 5/325MG TABLET PO PRN ×2 (04:30→20:20)
[2022-10-23] MEDS: CLONIDINE 0.1MG TABLET PO PRN ×2 (06:49→21:31)
[2022-10-23] MEDS: BLOOD SUGAR DIAGNOSTIC STRIP TEST SCH ×4 (06:49→20:29)
[2022-10-23] MEDS: INSULIN LISPRO 100 UNITS/ML SUBCUT SCH ×4 (07:10→20:29)
[2022-10-23 07:23] LABS: BASOPHILS % 0.5 % (0.0-2.0); EOSINOPHILS % 4.3 % (0.0-5.0); HEMATOCRIT. 21.5 % (36.0-48.0); HEMOGLOBIN. 7.3 g/dL (12.0-16.0); LYMPHOCYTES % 16.5 % (20.0-50.0); MEAN CORPUSCULAR HEMOGLOBIN 31.3 pg (28.0-32.0); MEAN CORPUSCULAR VOLUME 91.9 fL (81.0-99.0); MONOCYTES % 7.3 % (2.0-8.0); NEUTROPHILS % 71.4 % (40.0-76.0); PLATELET 454 x1000/uL (130-400); RED BLOOD CELL COUNT 2.34 mill/uL (4.2-5.4); RED CELL DISTRIBUTION WIDTH 14.7 % (11.6-14.6)
[2022-10-23 08:00] VITALS: BP 110/64
[2022-10-23] MEDS: ANASTROZOLE 1 MG TABLET PO SCH ×2 (09:00→11:04)
[2022-10-23] MEDS: AMLODIPINE 10MG TABLET PO SCH (09:12)
[2022-10-23] MEDS: GABAPENTIN 100MG CAPSULE PO SCH ×3 (09:12→16:59)
[2022-10-23] MEDS: CLOPIDOGREL 75MG TABLET PO SCH (09:12)
[2022-10-23 12:00] VITALS: BP_SYST 158; BP_SYST 167; BP_DIAS 61
[2022-10-23] MEDS ORDERED: LIDOCAINE HCL 1% 10 MG/ML 10ML VIAL ONE ×2 (15:02→16:02)
[2022-10-23] MEDS ORDERED: BACITRACIN 15GM TUBE TOP ONE (15:02)
[2022-10-23] MEDS ORDERED: POLYMYXIN B SULFATE 500000 UNITS/VIAL ONE (15:02)
[2022-10-23] MEDS ORDERED: BUPIVACAINE HCL/PF 0.5% (5MG/ML) 10ML ONE (15:03)
[2022-10-23] MEDS ORDERED: MIDAZOLAM HCL 2 MG/2 ML VIAL ONE ×2 (16:01→17:00)
[2022-10-23] MEDS ORDERED: PROPOFOL 200MG/20ML VIAL IV ONE ×2 (16:02→17:25)
[2022-10-23] MEDS ORDERED: VANCOMYCIN HCL 1 GM/VIAL ONE (17:30)
[2022-10-23] MEDS ORDERED: GENTAMICIN SULF 40MG/ML 2ML VIAL ONE (17:30)
[2022-10-23] MEDS ORDERED: ONDANSETRON HCL 4MG/2ML INJ IV PRN (17:45)
[2022-10-23] MEDS ORDERED: FENTANYL CITRATE/PF 50MCG/ML 2ML VIAL IV PRN (17:45)
[2022-10-23] MEDS ORDERED: HYDRALAZINE 20MG/ML VIAL IV NR (18:30)
[2022-10-23 20:00] VITALS: BP 185/96
[2022-10-23] MEDS: DIPHENHYDRAMINE 25MG CAPSULE PO SCH (20:20)
[2022-10-24] VITALS: BP 171/78
[2022-10-24] MEDS: HYDROCODONE/ACETAMINOPHEN 5/325MG TABLET PO PRN ×3 (02:30→20:20)
[2022-10-24] MEDS: SODIUM CHLORIDE 0.9% 1,000 ML IV SCH ×2 (02:34→12:43)
[2022-10-24] MEDS: CEFAZOLIN 2,000 MG in DEXT 5% WATER 100 ML IV SCH ×2 (03:51→11:12)
[2022-10-24 04:00] VITALS: BP 110/68
[2022-10-24] MEDS: BLOOD SUGAR DIAGNOSTIC STRIP TEST SCH ×4 (06:03→21:37)
[2022-10-24] MEDS: INSULIN LISPRO 100 UNITS/ML SUBCUT SCH ×4 (06:50→21:00)
[2022-10-24 07:31] LABS: BASOPHILS % 0.5 % (0.0-2.0); EOSINOPHILS % 3.5 % (0.0-5.0); HEMATOCRIT. 21.7 % (36.0-48.0); HEMOGLOBIN. 7.3 g/dL (12.0-16.0); LYMPHOCYTES % 13.1 % (20.0-50.0); MEAN CORPUSCULAR HEMOGLOBIN 30.9 pg (28.0-32.0); MEAN CORPUSCULAR VOLUME 92.3 fL (81.0-99.0); MEAN PLATELET VOLUME 6.1 fl (7.4-10.4); MONOCYTES % 8.4 % (2.0-8.0); NEUTROPHILS % 74.5 % (40.0-76.0); PLATELET 463 x1000/uL (130-400); RED BLOOD CELL COUNT 2.35 mill/uL (4.2-5.4); RED CELL DISTRIBUTION WIDTH 14.5 % (11.6-14.6)
[2022-10-24 08:00] VITALS: BP 130/61
[2022-10-24 08:33] LABS: PHOSPHORUS 4.1 mg/dL (2.5-4.9)
[2022-10-24] MEDS: AMLODIPINE 10MG TABLET PO SCH (08:48)
[2022-10-24] MEDS: ANASTROZOLE 1 MG TABLET PO SCH (08:48)
[2022-10-24] MEDS: GABAPENTIN 100MG CAPSULE PO SCH ×3 (08:48→17:00)
[2022-10-24] MEDS: CLOPIDOGREL 75MG TABLET PO SCH (08:48)
[2022-10-24 12:00] VITALS: BP 176/56
[2022-10-24] MEDS: CLONIDINE 0.1MG TABLET PO PRN ×2 (12:44→20:19)
[2022-10-24] MEDS ORDERED: CLOP75TA15 PO (14:22)
[2022-10-24] MEDS ORDERED: HYDR-4135 PO (14:22)
[2022-10-24] MEDS ORDERED: HYDR-4001 MT (14:22)
[2022-10-24 16:00] VITALS: BP 115/70
[2022-10-24] MEDS: CEFTRIAXONE 2 G in DEXTROSE 5% WATER 50 ML IV SCH (17:00)
[2022-10-24] MEDS: HYDRALAZINE HCL 50MG TABLET PO SCH ×2 (17:01→21:36)
[2022-10-24 20:00] VITALS: BP 164/70
[2022-10-24 20:16] LABS: CLARITY URINE CLOUDY (CLEAR); COLOR URINE YELLOW (YELLOW); KETONES URINE TRACE (NEGATIVE); LEUKOCYTE ESTERASE URINE TRACE (NEGATIVE); NITRITE URINE NEGATIVE (NEGATIVE); OCCULT BLOOD URINE 1+ (NEGATIVE); PROTEIN URINE 4+ (NEGATIVE); SPECIFIC GRAVITY URINE 1.021 (1.005-1.030); UROBILINOGEN URINE 0.2 E.U./dL (0.2-1.0)
[2022-10-24] MEDS: DIPHENHYDRAMINE 25MG CAPSULE PO SCH (20:18)
[2022-10-25] VITALS (9 sets, daily range): BP systolic 102–196; BP diastolic 66–93
[2022-10-25] MEDS: HYDRALAZINE HCL 50MG TABLET PO SCH ×3 (05:22→22:04)
[2022-10-25] MEDS: HYDROCODONE/ACETAMINOPHEN 5/325MG TABLET PO PRN (05:22)
[2022-10-25] MEDS: SODIUM CHLORIDE 0.9% 1,000 ML IV SCH ×2 (05:33→13:29)
[2022-10-25] MEDS: BLOOD SUGAR DIAGNOSTIC STRIP TEST SCH ×4 (06:17→22:00)
[2022-10-25] MEDS: INSULIN LISPRO 100 UNITS/ML SUBCUT SCH ×4 (06:34→22:00)
[2022-10-25 08:11] LABS: BASOPHILS % 0.4 % (0.0-2.0); EOSINOPHILS % 2.6 % (0.0-5.0); HEMOGLOBIN. 7.1 g/dL (12.0-16.0); MEAN CORPUSCULAR VOLUME 92.3 fL (81.0-99.0); MEAN PLATELET VOLUME 6.1 fl (7.4-10.4); MONOCYTES % 8.3 % (2.0-8.0); NEUTROPHILS % 72.7 % (40.0-76.0); PLATELET 479 x1000/uL (130-400); RED BLOOD CELL COUNT 2.22 mill/uL (4.2-5.4); RED CELL DISTRIBUTION WIDTH 15.1 % (11.6-14.6)
[2022-10-25 08:17] LABS: HEMATOCRIT. 20.5 % (36.0-48.0)
[2022-10-25 08:48] LABS: PHOSPHORUS 3.6 mg/dL (2.5-4.9)
[2022-10-25] MEDS: AMLODIPINE 10MG TABLET PO SCH (09:00)
[2022-10-25] MEDS: GABAPENTIN 100MG CAPSULE PO SCH ×3 (09:59→18:04)
[2022-10-25] MEDS: ACETAMINOPHEN 500MG TABLET PO PRN ×3 (10:16→22:18)
[2022-10-25] MEDS: ANASTROZOLE 1 MG TABLET PO SCH (10:16)
[2022-10-25] MEDS: CLOPIDOGREL 75MG TABLET PO SCH (11:57)
[2022-10-25] MEDS: CEFTRIAXONE 2 G in DEXTROSE 5% WATER 50 ML IV SCH (18:04)
[2022-10-25] MEDS: CLONIDINE 0.1MG TABLET PO PRN (18:20)
[2022-10-25] MEDS: DIPHENHYDRAMINE 25MG CAPSULE PO SCH (22:03)
[2022-10-26] VITALS (8 sets, daily range): BP systolic 132–187; BP diastolic 71–89
[2022-10-26] MEDS: ACETAMINOPHEN 500MG TABLET PO PRN ×4 (02:33→23:57)
[2022-10-26] MEDS: SODIUM CHLORIDE 0.9% 1,000 ML IV SCH ×2 (02:36→15:12)
[2022-10-26] MEDS: HYDRALAZINE HCL 50MG TABLET PO SCH ×3 (05:05→22:35)
[2022-10-26] MEDS: ALENDRONATE SODIUM 35MG TABLET PO SCH (06:00)
[2022-10-26] MEDS: BLOOD SUGAR DIAGNOSTIC STRIP TEST SCH ×4 (06:18→21:34)
[2022-10-26] MEDS: INSULIN LISPRO 100 UNITS/ML SUBCUT SCH ×5 (06:18→21:41)
[2022-10-26 08:53] LABS: BASOPHILS % 0.6 % (0.0-2.0); EOSINOPHILS % 3.5 % (0.0-5.0); HEMATOCRIT. 24.8 % (36.0-48.0); HEMOGLOBIN. 8.5 g/dL (12.0-16.0); LYMPHOCYTES % 15.7 % (20.0-50.0); MEAN CORPUSCULAR HEMOGLOBIN 31.5 pg (28.0-32.0); MEAN CORPUSCULAR VOLUME 91.4 fL (81.0-99.0); MEAN PLATELET VOLUME 6.3 fl (7.4-10.4); MONOCYTES % 8.5 % (2.0-8.0); NEUTROPHILS % 71.7 % (40.0-76.0); PLATELET 489 x1000/uL (130-400); RED BLOOD CELL COUNT 2.71 mill/uL (4.2-5.4); RED CELL DISTRIBUTION WIDTH 15.7 % (11.6-14.6)
[2022-10-26 09:22] LABS: PHOSPHORUS 3.7 mg/dL (2.5-4.9)
[2022-10-26] MEDS: AMLODIPINE 10MG TABLET PO SCH (09:29)
[2022-10-26] MEDS: GABAPENTIN 100MG CAPSULE PO SCH ×3 (09:29→16:21)
[2022-10-26] MEDS: CLOPIDOGREL 75MG TABLET PO SCH (09:29)
[2022-10-26] MEDS: ANASTROZOLE 1 MG TABLET PO SCH (11:06)
[2022-10-26] MEDS: CLONIDINE 0.1MG TABLET PO PRN (16:21)
[2022-10-26] MEDS: CEFTRIAXONE 2 G in DEXTROSE 5% WATER 50 ML IV SCH (16:21)
[2022-10-26] MEDS ORDERED: NALOXONE HCL 0.4MG/ML VIAL IV PRN (19:15)
[2022-10-26] MEDS ORDERED: CLONIDINE 0.1MG TABLET PO NR (19:15)
[2022-10-26] MEDS: HYDROCODONE/ACETAMINOPHEN 5/325MG TABLET PO PRN (20:10)
[2022-10-26] MEDS: DIPHENHYDRAMINE 25MG CAPSULE PO SCH (21:34)
[2022-10-27] VITALS (7 sets, daily range): BP systolic 149–176; BP diastolic 62–87
[2022-10-27] MEDS: CLONIDINE 0.1MG TABLET PO PRN ×2 (01:10→17:46)
[2022-10-27] MEDS: HYDRALAZINE HCL 50MG TABLET PO SCH ×3 (05:23→22:08)
[2022-10-27] MEDS: ACETAMINOPHEN 500MG TABLET PO PRN (05:23)
[2022-10-27] MEDS: SODIUM CHLORIDE 0.9% 1,000 ML IV SCH ×2 (05:24→18:00)
[2022-10-27] MEDS: CLOPIDOGREL 75MG TABLET PO SCH (09:17)
[2022-10-27] MEDS: ANASTROZOLE 1 MG TABLET PO SCH (09:18)
[2022-10-27] MEDS: AMLODIPINE 10MG TABLET PO SCH (09:18)
[2022-10-27] MEDS: GABAPENTIN 100MG CAPSULE PO SCH ×3 (09:19→17:49)
[2022-10-27] MEDS: BLOOD SUGAR DIAGNOSTIC STRIP TEST SCH ×4 (12:00→20:46)
[2022-10-27] MEDS: INSULIN LISPRO 100 UNITS/ML SUBCUT SCH ×4 (12:15→22:09)
[2022-10-27] MEDS: CEFTRIAXONE 2 G in DEXTROSE 5% WATER 50 ML IV SCH (18:00)
[2022-10-27] MEDS: IPRATROPIUM/ALBUTEROL 0.5-3(2.5)MG/3ML NEB HHN PRN (18:46)
[2022-10-27] MEDS ORDERED: LABETALOL HCL 100MG TABLET PO NR (20:00)
[2022-10-27] MEDS: DIPHENHYDRAMINE 25MG CAPSULE PO SCH (20:46)
[2022-10-27] MEDS: HYDROCODONE/ACETAMINOPHEN 5/325MG TABLET PO PRN (22:07)
[2022-10-28 04:00] VITALS: BP 159/74
[2022-10-28] MEDS: HYDRALAZINE HCL 50MG TABLET PO SCH ×3 (06:29→20:53)
[2022-10-28] MEDS: INSULIN LISPRO 100 UNITS/ML SUBCUT SCH ×4 (06:35→20:53)
[2022-10-28 06:56] LABS: BASOPHILS % 0.6 % (0.0-2.0); EOSINOPHILS % 2.9 % (0.0-5.0); HEMATOCRIT. 25.3 % (36.0-48.0); HEMOGLOBIN. 8.4 g/dL (12.0-16.0); LYMPHOCYTES % 16.8 % (20.0-50.0); MEAN CORPUSCULAR HEMOGLOBIN 30.5 pg (28.0-32.0); MEAN CORPUSCULAR VOLUME 91.8 fL (81.0-99.0); MEAN PLATELET VOLUME 6.1 fl (7.4-10.4); MONOCYTES % 7.9 % (2.0-8.0); NEUTROPHILS % 71.8 % (40.0-76.0); PLATELET 490 x1000/uL (130-400); RED BLOOD CELL COUNT 2.76 mill/uL (4.2-5.4); RED CELL DISTRIBUTION WIDTH 15.9 % (11.6-14.6)
[2022-10-28 07:24] LABS: PHOSPHORUS 4.3 mg/dL (2.5-4.9)
[2022-10-28 07:28] VITALS: BP 180/87
[2022-10-28] MEDS: HYDROCODONE/ACETAMINOPHEN 5/325MG TABLET PO PRN ×2 (07:28→16:44)
[2022-10-28] MEDS: CLONIDINE 0.1MG TABLET PO PRN (07:52)
[2022-10-28 08:00] VITALS: BP 180/80
[2022-10-28] MEDS: BLOOD SUGAR DIAGNOSTIC STRIP TEST SCH ×4 (09:00→20:53)
[2022-10-28] MEDS: CLOPIDOGREL 75MG TABLET PO SCH (09:00)
[2022-10-28] MEDS: AMLODIPINE 10MG TABLET PO SCH (09:09)
[2022-10-28] MEDS: GABAPENTIN 100MG CAPSULE PO SCH ×3 (09:10→16:22)
[2022-10-28] MEDS: ANASTROZOLE 1 MG TABLET PO SCH (09:10)
[2022-10-28 12:00] VITALS: BP 140/85
[2022-10-28 16:00] VITALS: BP 132/82
[2022-10-28] MEDS: CEFTRIAXONE 2 G in DEXTROSE 5% WATER 50 ML IV SCH (16:22)
[2022-10-28 20:00] VITALS: BP 154/69
[2022-10-28] MEDS: DIPHENHYDRAMINE 25MG CAPSULE PO SCH (20:52)
[2022-10-28] MEDS: ACETAMINOPHEN 500MG TABLET PO PRN (20:52)
[2022-10-29 00:06] VITALS: BP 146/54
[2022-10-29 04:00] VITALS: BP 144/74
[2022-10-29] MEDS: HYDROCODONE/ACETAMINOPHEN 5/325MG TABLET PO PRN ×2 (05:14→12:33)
[2022-10-29] MEDS: HYDRALAZINE HCL 50MG TABLET PO SCH ×3 (05:15→21:24)
[2022-10-29] MEDS: IPRATROPIUM/ALBUTEROL 0.5-3(2.5)MG/3ML NEB HHN PRN (05:29)
[2022-10-29] MEDS: INSULIN LISPRO 100 UNITS/ML SUBCUT SCH ×4 (07:00→21:29)
[2022-10-29 07:16] LABS: BASOPHILS % 0.6 % (0.0-2.0); EOSINOPHILS % 2.2 % (0.0-5.0); HEMATOCRIT. 24.2 % (36.0-48.0); HEMOGLOBIN. 8.1 g/dL (12.0-16.0); LYMPHOCYTES % 25.4 % (20.0-50.0); MEAN CORPUSCULAR VOLUME 92.4 fL (81.0-99.0); MEAN PLATELET VOLUME 6.1 fl (7.4-10.4); MONOCYTES % 7.4 % (2.0-8.0); NEUTROPHILS % 64.4 % (40.0-76.0); PLATELET 471 x1000/uL (130-400); RED BLOOD CELL COUNT 2.62 mill/uL (4.2-5.4); RED CELL DISTRIBUTION WIDTH 15.4 % (11.6-14.6)
[2022-10-29 08:00] VITALS: BP 142/60
[2022-10-29 08:07] LABS: PHOSPHORUS 4.3 mg/dL (2.5-4.9)
[2022-10-29] MEDS: GABAPENTIN 100MG CAPSULE PO SCH ×3 (09:22→16:50)
[2022-10-29] MEDS: ANASTROZOLE 1 MG TABLET PO SCH (09:22)
[2022-10-29] MEDS: AMLODIPINE 10MG TABLET PO SCH (09:22)
[2022-10-29] MEDS: CLOPIDOGREL 75MG TABLET PO SCH (09:22)
[2022-10-29 12:00] VITALS: BP 152/36
[2022-10-29] MEDS: BLOOD SUGAR DIAGNOSTIC STRIP TEST SCH ×4 (12:00→21:17)
[2022-10-29 16:00] VITALS: BP 150/68
[2022-10-29] MEDS ORDERED: SODIUM POLYSTYRENE SULFONATE 15 G/60 ML BOT PO NR (16:15)
[2022-10-29] MEDS: CEFTRIAXONE 2 G in DEXTROSE 5% WATER 50 ML IV SCH (16:50)
[2022-10-29 20:00] VITALS: BP 156/81
[2022-10-29] MEDS: ACETAMINOPHEN 500MG TABLET PO PRN (21:24)
[2022-10-29] MEDS: DIPHENHYDRAMINE 25MG CAPSULE PO SCH (21:24)
[2022-10-30] VITALS (7 sets, daily range): BP systolic 108–162; BP diastolic 60–88
[2022-10-30] MEDS: IPRATROPIUM/ALBUTEROL 0.5-3(2.5)MG/3ML NEB HHN PRN (03:10)
[2022-10-30] MEDS: BLOOD SUGAR DIAGNOSTIC STRIP TEST SCH ×4 (05:07→21:35)
[2022-10-30] MEDS: INSULIN LISPRO 100 UNITS/ML SUBCUT SCH ×4 (05:09→21:00)
[2022-10-30] MEDS: HYDRALAZINE HCL 50MG TABLET PO SCH ×3 (05:12→21:37)
[2022-10-30] MEDS: ACETAMINOPHEN 500MG TABLET PO PRN ×2 (05:12→21:38)
[2022-10-30 06:20] LABS: BASOPHILS % 0.5 % (0.0-2.0); EOSINOPHILS % 2.1 % (0.0-5.0); HEMATOCRIT. 23.1 % (36.0-48.0); HEMOGLOBIN. 7.7 g/dL (12.0-16.0); LYMPHOCYTES % 20.5 % (20.0-50.0); MEAN CORPUSCULAR HEMOGLOBIN 31.1 pg (28.0-32.0); MEAN CORPUSCULAR VOLUME 93.4 fL (81.0-99.0); MEAN PLATELET VOLUME 5.8 fl (7.4-10.4); MONOCYTES % 10.3 % (2.0-8.0); NEUTROPHILS % 66.6 % (40.0-76.0); PLATELET 397 x1000/uL (130-400); RED BLOOD CELL COUNT 2.47 mill/uL (4.2-5.4); RED CELL DISTRIBUTION WIDTH 15.7 % (11.6-14.6)
[2022-10-30] MEDS: ANASTROZOLE 1 MG TABLET PO SCH (08:35)
[2022-10-30] MEDS: GABAPENTIN 100MG CAPSULE PO SCH ×3 (08:36→16:45)
[2022-10-30] MEDS: AMLODIPINE 10MG TABLET PO SCH (08:36)
[2022-10-30] MEDS: CLOPIDOGREL 75MG TABLET PO SCH (08:36)
[2022-10-30 09:22] LABS: PHOSPHORUS 4.3 mg/dL (2.5-4.9)
[2022-10-30] MEDS: CLONIDINE 0.1MG TABLET PO PRN (15:40)
[2022-10-30] MEDS: CEFTRIAXONE 2 G in DEXTROSE 5% WATER 50 ML IV SCH (16:45)
[2022-10-30] MEDS: HYDROCODONE/ACETAMINOPHEN 5/325MG TABLET PO PRN (18:19)
[2022-10-30] MEDS: DIPHENHYDRAMINE 25MG CAPSULE PO SCH (21:37)
[2022-10-31] VITALS: BP_SYST 137; BP_DIAS 52; BP_DIAS 68
[2022-10-31] MEDS: IPRATROPIUM/ALBUTEROL 0.5-3(2.5)MG/3ML NEB HHN PRN (01:50)
[2022-10-31 04:00] VITALS: BP 139/68
[2022-10-31] MEDS: ACETAMINOPHEN 500MG TABLET PO PRN ×2 (05:48→21:45)
[2022-10-31] MEDS: HYDRALAZINE HCL 50MG TABLET PO SCH ×3 (05:49→21:46)
[2022-10-31] MEDS: INSULIN LISPRO 100 UNITS/ML SUBCUT SCH ×4 (05:50→21:00)
[2022-10-31 06:33] LABS: BASOPHILS % 0.6 % (0.0-2.0); EOSINOPHILS % 3.9 % (0.0-5.0); HEMATOCRIT. 24.4 % (36.0-48.0); HEMOGLOBIN. 8.2 g/dL (12.0-16.0); LYMPHOCYTES % 22.4 % (20.0-50.0); MEAN CORPUSCULAR HEMOGLOBIN 31.2 pg (28.0-32.0); MEAN CORPUSCULAR VOLUME 92.5 fL (81.0-99.0); MEAN PLATELET VOLUME 5.9 fl (7.4-10.4); MONOCYTES % 10.2 % (2.0-8.0); NEUTROPHILS % 62.9 % (40.0-76.0); PLATELET 410 x1000/uL (130-400); RED BLOOD CELL COUNT 2.63 mill/uL (4.2-5.4); RED CELL DISTRIBUTION WIDTH 15.8 % (11.6-14.6)
[2022-10-31] MEDS: BLOOD SUGAR DIAGNOSTIC STRIP TEST SCH ×4 (07:21→21:46)
[2022-10-31 07:55] LABS: PHOSPHORUS 3.7 mg/dL (2.5-4.9)
[2022-10-31 08:00] VITALS: BP 153/67
[2022-10-31] MEDS: CLOPIDOGREL 75MG TABLET PO SCH (08:05)
[2022-10-31] MEDS: GABAPENTIN 100MG CAPSULE PO SCH ×3 (08:05→15:49)
[2022-10-31] MEDS: AMLODIPINE 10MG TABLET PO SCH (08:05)
[2022-10-31] MEDS: ANASTROZOLE 1 MG TABLET PO SCH (08:05)
[2022-10-31 12:00] VITALS: BP 144/65
[2022-10-31 15:38] VITALS: BP 146/66
[2022-10-31] MEDS: CEFTRIAXONE 2 G in DEXTROSE 5% WATER 50 ML IV SCH (15:49)
[2022-10-31] MEDS: HYDROCODONE/ACETAMINOPHEN 5/325MG TABLET PO PRN (17:35)
[2022-10-31 20:00] VITALS: BP 148/84
[2022-10-31] MEDS: DIPHENHYDRAMINE 25MG CAPSULE PO SCH (21:46)
[2022-11-01] VITALS: BP 136/69
[2022-11-01 04:00] VITALS: BP 135/80
[2022-11-01] MEDS: ACETAMINOPHEN 500MG TABLET PO PRN ×2 (06:09→22:46)
[2022-11-01] MEDS: HYDRALAZINE HCL 50MG TABLET PO SCH ×3 (06:10→21:00)
[2022-11-01] MEDS: BLOOD SUGAR DIAGNOSTIC STRIP TEST SCH ×4 (06:12→20:57)
[2022-11-01] MEDS: INSULIN LISPRO 100 UNITS/ML SUBCUT SCH ×4 (06:13→21:00)
[2022-11-01 08:00] VITALS: BP 160/65
[2022-11-01] MEDS: AMLODIPINE 10MG TABLET PO SCH (08:55)
[2022-11-01] MEDS: ANASTROZOLE 1 MG TABLET PO SCH (08:55)
[2022-11-01] MEDS: GABAPENTIN 100MG CAPSULE PO SCH ×3 (08:55→16:58)
[2022-11-01] MEDS: CLOPIDOGREL 75MG TABLET PO SCH (08:55)
[2022-11-01 10:14] LABS: BG CARBOXYHEMOGLOBIN 0.2 % (0.5-1.5); BG DEOXYHEMOGLOBIN 13.4 % (0.0-5.0); BG FRACTION INSPIRED OXYGEN 21; BG HCO3 ACT 19.9 mmol/L (22.0-26.0); BG METHEMOGLOBIN 0.3 % (0.0-1.5); BG OXYGEN SATURATION 86.5 % (92.0-98.5); BG OXYHEMOGLOBIN 86.1 % (94.0-97.0); BG PCO2 36.2 mmHg (35.0-45.0); BG PH 7.359 (7.350-7.450); BG SAMPLE SITE LEFT RADIAL; BG TOTAL HEMOGLOBIN 9.2 g/dL (12.0-18.0); BG VENT MODE ROOM AIR
[2022-11-01 12:00] VITALS: BP 164/72
[2022-11-01 16:00] VITALS: BP 162/70
[2022-11-01] MEDS: CEFTRIAXONE 2 G in SODIUM CHLORIDE 0.9% 50 ML IV SCH (16:58)
[2022-11-01 20:00] VITALS: BP 155/61
[2022-11-01] MEDS: DIPHENHYDRAMINE 25MG CAPSULE PO SCH (20:58)
[2022-11-01] MEDS ORDERED: NALOXONE HCL 0.4MG/ML VIAL IV PRN (23:00)
[2022-11-02] VITALS: BP 136/68
[2022-11-02] MEDS: IPRATROPIUM/ALBUTEROL 0.5-3(2.5)MG/3ML NEB HHN PRN ×2 (01:51→21:47)
[2022-11-02] MEDS: ACETAMINOPHEN 500MG TABLET PO PRN ×3 (03:37→22:30)
[2022-11-02 04:00] VITALS: BP 133/85
[2022-11-02] MEDS: ALENDRONATE SODIUM 35MG TABLET PO SCH (06:40)
[2022-11-02] MEDS: HYDRALAZINE HCL 50MG TABLET PO SCH ×3 (06:46→21:42)
[2022-11-02] MEDS: INSULIN LISPRO 100 UNITS/ML SUBCUT SCH ×3 (07:00→21:00)
[2022-11-02] MEDS ORDERED: BENZONATATE 100MG CAPSULE PO PRN (07:15)
[2022-11-02 08:00] VITALS: BP 135/59
[2022-11-02] MEDS: CLOPIDOGREL 75MG TABLET PO SCH (08:44)
[2022-11-02] MEDS: ANASTROZOLE 1 MG TABLET PO SCH (08:44)
[2022-11-02] MEDS: AMLODIPINE 10MG TABLET PO SCH (08:45)
[2022-11-02] MEDS ORDERED: FUROSEMIDE 40MG/4ML VIAL IVP SCH (09:00)
[2022-11-02] MEDS: GABAPENTIN 100MG CAPSULE PO SCH ×3 (09:11→17:14)
[2022-11-02 12:00] VITALS: BP 160/78
[2022-11-02] MEDS: BLOOD SUGAR DIAGNOSTIC STRIP TEST SCH ×3 (13:00→21:40)
[2022-11-02] MEDS: CEFTRIAXONE 2 G in SODIUM CHLORIDE 0.9% 50 ML IV SCH (17:14)
[2022-11-02 20:00] VITALS: BP 176/79
[2022-11-02] MEDS: DIPHENHYDRAMINE 25MG CAPSULE PO SCH (21:42)
[2022-11-03] VITALS: BP 163/74
[2022-11-03 04:00] VITALS: BP 160/74
[2022-11-03] MEDS: HYDROCODONE/ACETAMINOPHEN 5/325MG TABLET PO PRN ×2 (05:00→05:16)
[2022-11-03] MEDS: HYDRALAZINE HCL 50MG TABLET PO SCH ×2 (06:37→14:10)
[2022-11-03] MEDS: INSULIN LISPRO 100 UNITS/ML SUBCUT SCH ×3 (07:00→16:52)
[2022-11-03 07:05] LABS: BASOPHILS % 0.8 % (0.0-2.0); HEMATOCRIT. 23.8 % (36.0-48.0); HEMOGLOBIN. 7.8 g/dL (12.0-16.0); LYMPHOCYTES % 19.4 % (20.0-50.0); MEAN CORPUSCULAR HEMOGLOBIN 30.9 pg (28.0-32.0); MEAN CORPUSCULAR VOLUME 93.8 fL (81.0-99.0); MEAN PLATELET VOLUME 5.9 fl (7.4-10.4); MONOCYTES % 9.9 % (2.0-8.0); NEUTROPHILS % 66.9 % (40.0-76.0); PLATELET 404 x1000/uL (130-400); RED BLOOD CELL COUNT 2.54 mill/uL (4.2-5.4); RED CELL DISTRIBUTION WIDTH 16.9 % (11.6-14.6)
[2022-11-03 08:00] VITALS: BP 170/82
[2022-11-03] MEDS: ANASTROZOLE 1 MG TABLET PO SCH (08:34)
[2022-11-03] MEDS: AMLODIPINE 10MG TABLET PO SCH (08:34)
[2022-11-03] MEDS: BLOOD SUGAR DIAGNOSTIC STRIP TEST SCH ×3 (08:34→16:52)
[2022-11-03] MEDS: CLOPIDOGREL 75MG TABLET PO SCH (08:34)
[2022-11-03] MEDS: GABAPENTIN 100MG CAPSULE PO SCH ×3 (08:34→16:52)
[2022-11-03] MEDS ORDERED: FUROSEMIDE 40MG/4ML VIAL IVP SCH (10:00)
[2022-11-03] MEDS ORDERED: BENAZEPRIL 10MG TABLET PO SCH (10:00)
[2022-11-03 12:42] VITALS: BP 170/82
[2022-11-03] MEDS: CEFTRIAXONE 2 G in SODIUM CHLORIDE 0.9% 50 ML IV SCH (16:52)
== END 2022-11-03 18:00 | disposition home health service (06) | DRG 710 ==
LOC: ER 08:48 → MICUSO 12:02 → EDBEDREQTM 12:10 → EDBEDREQ 12:10 → EDBEDREQSVC 12:10 → EDBEDREQ 12:11 → 7EST 10-19 11:47 → 4WST 10-26 17:22
PROVIDERS: ADMIT Internal Medicine; ATTEND Internal Medicine
PROC: 047M34Z Dilation of Right Popliteal Artery with Drug-eluting Intraluminal Device, Percutaneous Approach (ICD-10-PCS; 2022-10-20)
PROC: 04CM3ZZ Extirpation of Matter from Right Popliteal Artery, Percutaneous Approach (ICD-10-PCS; 2022-10-20)
PROC: 04CP3ZZ Extirpation of Matter from Right Anterior Tibial Artery, Percutaneous Approach (ICD-10-PCS; 2022-10-20)
PROC: 047P35Z Dilation of Right Anterior Tibial Artery with Two Drug-eluting Intraluminal Devices, Percutaneous Approach (ICD-10-PCS; 2022-10-20)
PROC: B41F1ZZ Fluoroscopy of Right Lower Extremity Arteries using Low Osmolar Contrast (ICD-10-PCS; 2022-10-20)
PROC: 3E0U029 Introduction of Other Anti-infective into Joints, Open Approach (ICD-10-PCS; 2022-10-23)
PROC: 0QBN0ZZ Excision of Right Metatarsal, Open Approach (ICD-10-PCS; 2022-10-23)
PROC: 0Y6M0Z9 Detachment at Right Foot, Partial 1st Ray, Open Approach (ICD-10-PCS; 2022-10-23)
PROC: 30233N1 Transfusion of Nonautologous Red Blood Cells into Peripheral Vein, Percutaneous Approach (ICD-10-PCS; principal; 2022-10-25)
PROC: 02HV33Z Insertion of Infusion Device into Superior Vena Cava, Percutaneous Approach (ICD-10-PCS; 2022-10-28)
PROC: B548ZZA Ultrasonography of Superior Vena Cava, Guidance (ICD-10-PCS; 2022-10-28)
PROC: B5181ZA Fluoroscopy of Superior Vena Cava using Low Osmolar Contrast, Guidance (ICD-10-PCS; 2022-10-28)
DX: A41.01 Sepsis due to Methicillin susceptible Staphylococcus aureus (principal); J96.01 Acute respiratory failure with hypoxia; I70.261 Atherosclerosis of native arteries of extremities with gangrene, right leg; N17.9 Acute kidney failure, unspecified; E11.52 Type 2 diabetes mellitus with diabetic peripheral angiopathy with gangrene; I50.9 Heart failure, unspecified; I13.0 Hypertensive heart and chronic kidney disease with heart failure and stage 1 through stage 4 chronic kidney disease, or unspecified chronic kidney disease; L97.519 Non-pressure chronic ulcer of other part of right foot with unspecified severity; E11.22 Type 2 diabetes mellitus with diabetic chronic kidney disease; D64.9 Anemia, unspecified; M86.8X7 Other osteomyelitis, ankle and foot; I70.92 Chronic total occlusion of artery of the extremities; E11.40 Type 2 diabetes mellitus with diabetic neuropathy, unspecified; E11.621 Type 2 diabetes mellitus with foot ulcer; E11.69 Type 2 diabetes mellitus with other specified complication; M81.0 Age-related osteoporosis without current pathological fracture; N18.2 Chronic kidney disease, stage 2 (mild); F17.210 Nicotine dependence, cigarettes, uncomplicated; E78.5 Hyperlipidemia, unspecified; E11.65 Type 2 diabetes mellitus with hyperglycemia; Z20.822 Contact with and (suspected) exposure to COVID-19; Z79.899 Other long term (current) drug therapy; Z89.429 Acquired absence of other toe(s), unspecified side; Z85.3 Personal history of malignant neoplasm of breast; Z83.3 Family history of diabetes mellitus; Z82.49 Family history of ischemic heart disease and other diseases of the circulatory system; Z79.83 Long term (current) use of bisphosphonates; Z79.811 Long term (current) use of aromatase inhibitors; Z79.4 Long term (current) use of insulin; Z79.02 Long term (current) use of antithrombotics/antiplatelets; Z79.84 Long term (current) use of oral hypoglycemic drugs; Z90.11 Acquired absence of right breast and nipple; Z79.82 Long term (current) use of aspirin
CPT/HCPCS: 36415; 36573; 36600; 37227; 37231; 71045; 71250; 73630; 75710; 76770; 80048; 80053; 80202; 81003; 82375; 82533; 82550; 82805; 82962; 83036; 83540; 83550; 83735; 83880; 83935; 84100; 84145; 84443; 85025; 85347; 85651; 86850; 86900; 86920; 87070; 87075; 87077; 87186; 87426; 88311; 93005; 93306; 93922; 93970; 94640; 97110; 97116; 97162; 97530; 99285; A6261; C1725; C1760; C1769; C1874; C1876; C1885; C1887; C1893; C1894; C9803; J0360; J0690; J0696; J1580; J1644; J1815; J1940; J2250; J2543; J2704; J3010; J3370; J3490; J7030; J7060; P9016; Q0163; Q9967

== ENCOUNTER 2022-11-08 10:06 | Emergency (ER) | payer MEDICAID ==
[~2022-11-08] VITALS: Ht 167.6 cm; Wt 63.0 kg
[~2022-11-08 10:06] MED LIST changes: -ASPI-1497 PO; -ASPI-986 MT; -BENA10TA74 MT; +CLOP75TA15 PO; -GLIP5TAB12 PO; +HYDR-4001 MT; +HYDR-4135 PO; -HYDR25TA MT; -NAPR375T5 MT
[2022-11-08 10:25] VITALS: BP 190/83
[2022-11-08] MEDS ORDERED: LIDOCAINE HCL 1% 10 MG/ML 10ML VIAL ONE (11:56)
[2022-11-08] MEDS: VANCOMYCIN 1G PREMIX 200 ML IV SCH (12:15)
[2022-11-08] MEDS ORDERED: LIDOCAINE HCL/PF 1% 10 MG/ML 5ML VIAL ONE (13:01)
== END 2022-11-08 15:31 | disposition home or self-care (01) ==
LOC: ER 10:44
DX: Z45.2 Encounter for adjustment and management of vascular access device (principal); E11.69 Type 2 diabetes mellitus with other specified complication; M86.8X7 Other osteomyelitis, ankle and foot; Z79.2 Long term (current) use of antibiotics; Z20.822 Contact with and (suspected) exposure to COVID-19; I11.0 Hypertensive heart disease with heart failure; I50.9 Heart failure, unspecified; Z89.431 Acquired absence of right foot; Z90.10 Acquired absence of unspecified breast and nipple; Z85.3 Personal history of malignant neoplasm of breast
CPT/HCPCS: 36573; 71045; 87426; 99284; C1725; C9803; J3490; J3370

== ENCOUNTER 2023-01-05 23:11 | Emergency (ER) | payer MEDICAID ==
[~2023-01-05] VITALS: Ht 165.1 cm; Wt 90.0 kg
[2023-01-05] MEDS ORDERED: METHYLPREDNISOLONE SOD SUCC 125 MG/2 ML VIAL IV STA (23:34)
[2023-01-05] MEDS ORDERED: IPRATROPIUM BROMIDE (0.02%) 0.5MG/2.5ML NEB HHN STA (23:34)
[2023-01-06] MEDS ORDERED: ALBUTEROL (0.083%) 2.5MG/3ML NEB HHN SCH
[2023-01-06 01:01] LABS: BASOPHILS % 0.5 % (0.0-2.0); EOSINOPHILS % 1.2 % (0.0-5.0); HEMATOCRIT. 34.7 % (36.0-48.0); HEMOGLOBIN. 11.5 g/dL (12.0-16.0); LYMPHOCYTES % 31.2 % (20.0-50.0); MEAN CORPUSCULAR VOLUME 90.3 fL (81.0-99.0); MEAN PLATELET VOLUME 6.2 fl (7.4-10.4); MONOCYTES % 7.4 % (2.0-8.0); NEUTROPHILS % 59.7 % (40.0-76.0); PLATELET 332 x1000/uL (130-400); RED BLOOD CELL COUNT 3.84 mill/uL (4.2-5.4); RED CELL DISTRIBUTION WIDTH 16.7 % (11.6-14.6)
[2023-01-06 01:09] LABS: CHLORIDE 111 mEq/L (98-107)
[2023-01-06] MEDS ORDERED: FUROSEMIDE 40MG/4ML VIAL IVP ONE (02:00)
[2023-01-06 02:01] LABS: D-DIMER 2.93 mg/L FEU (<0.50); PARTIAL THROMBOPLASTIN TIME 32.2 sec (23.4-31.0); PROTHROMBIN TIME 10.5 sec (9.6-11.0)
[2023-01-06] MEDS ORDERED: IPRATROPIUM BROMIDE (0.02%) 0.5MG/2.5ML NEB ONE (02:19)
[2023-01-06] MEDS ORDERED: METHYLPREDNISOLONE SOD SUCC 125 MG/2 ML VIAL IV NR (12:45)
[2023-01-06] MEDS ORDERED: FUROSEMIDE 40MG/4ML VIAL IVP NR (12:45)
[2023-01-06] MEDS ORDERED: ENOXAPARIN 30MG/0.3ML SYR SUBCUT NR (13:00)
[2023-01-06] MEDS ORDERED: IOHEXOL-350 100 ML BOTTLE ONE (14:05)
[2023-01-06 17:00] VITALS: BP 185/93
== END 2023-01-06 17:08 | disposition short-term general hospital (02) ==
LOC: ER 23:17 → CANBEDREQ 01-07 08:02
DX: I50.9 Heart failure, unspecified (principal); F12.10 Cannabis abuse, uncomplicated; J44.1 Chronic obstructive pulmonary disease with (acute) exacerbation; Z20.822 Contact with and (suspected) exposure to COVID-19; N17.9 Acute kidney failure, unspecified; Z79.899 Other long term (current) drug therapy
CPT/HCPCS: 36415; 71045; 71275; 80053; 83880; 84484; 85025; 85379; 85610; 85730; 87426; 87804; 93005; 93971; 94640; 96372; 96374; 96375; 99291; C9803; J1650; J1940; J2930; Q9967; Z7610

== ENCOUNTER 2023-01-27 22:38 | Emergency (ER) | payer MEDICAID ==
[~2023-01-27] VITALS: Ht 170.2 cm; Wt 60.0 kg
[2023-01-28] MEDS ORDERED: ALBUTEROL (0.083%) 2.5MG/3ML NEB HHN STA (00:35)
[2023-01-28] MEDS ORDERED: IPRATROPIUM BROMIDE (0.02%) 0.5MG/2.5ML NEB HHN STA (00:35)
[2023-01-28] MEDS ORDERED: METHYLPREDNISOLONE SOD SUCC 40 MG/ML VIAL IV ONE (00:45)
[2023-01-28 01:16] LABS: BASOPHILS % 0.5 % (0.0-2.0); EOSINOPHILS % 1.2 % (0.0-5.0); HEMATOCRIT. 29.5 % (36.0-48.0); HEMOGLOBIN. 9.8 g/dL (12.0-16.0); LYMPHOCYTES % 23.4 % (20.0-50.0); MEAN CORPUSCULAR HEMOGLOBIN 30.2 pg (28.0-32.0); MEAN PLATELET VOLUME 6.7 fl (7.4-10.4); MONOCYTES % 11.8 % (2.0-8.0); NEUTROPHILS % 63.1 % (40.0-76.0); PLATELET 311 x1000/uL (130-400); RED BLOOD CELL COUNT 3.24 mill/uL (4.2-5.4); RED CELL DISTRIBUTION WIDTH 16.7 % (11.6-14.6)
[2023-01-28 01:20] LABS: CHLORIDE 102 mEq/L (98-107)
[2023-01-28] MEDS ORDERED: PIPERACILLIN/TAZ 3.375G PREMIX 50 ML IV ONE (01:45)
[2023-01-28] MEDS ORDERED: VANCOMYCIN 1G PREMIX 200 ML IV ONE (01:45)
[2023-01-28] MEDS ORDERED: HYDRALAZINE 20MG/ML VIAL IV ONE (06:30)
[2023-01-28] MEDS ORDERED: FUROSEMIDE 40MG/4ML VIAL IVP ONE (06:30)
[2023-01-28 07:03] LABS: BG BASE EXCESS 2.5 mmol/L (-2.0-2.0); BG DEOXYHEMOGLOBIN 5.4 % (0.0-5.0); BG FRACTION INSPIRED OXYGEN 100; BG HCO3 ACT 27.1 mmol/L (22.0-26.0); BG METHEMOGLOBIN 0.2 % (0.0-1.5); BG OXYGEN SATURATION 94.6 % (92.0-98.5); BG OXYHEMOGLOBIN 94.4 % (94.0-97.0); BG PCO2 41.9 mmHg (35.0-45.0); BG PH 7.429 (7.350-7.450); BG PO2 75.3 mmHg (75.0-100.0); BG SAMPLE SITE LEFT BRACHIAL; BG TOTAL HEMOGLOBIN 12.1 g/dL (12.0-18.0); BG VENT MODE MASK - NRB
[2023-01-28 10:00] VITALS: BP 168/87
== END 2023-01-28 11:23 | disposition short-term general hospital (02) ==
LOC: ER 22:38
DX: E11.22 Type 2 diabetes mellitus with diabetic chronic kidney disease (principal); N18.9 Chronic kidney disease, unspecified; E87.70 Fluid overload, unspecified; J18.9 Pneumonia, unspecified organism; I10 Essential (primary) hypertension; J45.909 Unspecified asthma, uncomplicated
CPT/HCPCS: 36415; 36600; 71045; 80053; 82375; 82805; 83605; 83880; 84484; 85025; 87040; 94640; 96365; 96366; 96368; 96375; 99285; J0360; J1940; J2543; J2920; J3370; Z7610

== ENCOUNTER 2023-08-08 17:17 | Emergency (ER) | payer MEDICAID, OTHER ==
[~2023-08-08] VITALS: Ht 175.3 cm; Wt 68.0 kg
[2023-08-08 17:20] VITALS: O2SAT 99
[2023-08-08] MEDS ORDERED: MORPHINE SULFATE 4 MG/ML CPJ (NOT FOR IM USE) IV ONE (18:15)
[2023-08-08] MEDS ORDERED: ONDANSETRON HCL 4MG/2ML INJ IV ONE (18:15)
[2023-08-08 19:37] LABS: BASOPHILS % 0.7 % (0.0-2.0); DIFFERENTIAL COMMENT 0; HEMATOCRIT. 40.7 % (36.0-48.0); LYMPHOCYTES % 16.8 % (20.0-50.0); MEAN CORPUSCULAR HEMOGLOBIN 32.1 pg (28.0-32.0); MEAN CORPUSCULAR HGB CONC 31.9 g/dL (31.0-37.0); MEAN CORPUSCULAR VOLUME 100.6 fL (81.0-99.0); MEAN PLATELET VOLUME 6.9 fl (7.4-10.4); MONOCYTES % 5.5 % (2.0-8.0); PLATELET 190 x1000/uL (130-400); RED BLOOD CELL COUNT 4.05 mill/uL (4.2-5.4); RED CELL DISTRIBUTION WIDTH 17.6 % (11.6-14.6); WHITE BLOOD COUNT 5.8 x1000/uL (4.5-11.0)
[2023-08-08 19:44] LABS: CHLORIDE 110 mEq/L (98-107); INDEX HEMOLYSI 2 (1-3); INDEX ICTERIC 1 (1-4); INDEX LIPEMIC 1 (1-3); POTASSIUM 5.1 mEq/L (3.5-5.1); SODIUM 138 mEq/L (136-145)
[2023-08-08 19:53] LABS: ALANINE AMINOTRANSFERASE 26 IU/L (13-61); ALBUMIN 2.7 g/dL (3.4-5.0); ASPARTATE AMINOTRANSFERASE 21 IU/L (15-37); BILIRUBIN TOTAL 0.5 mg/dL (0.1-1.0); CALCIUM 7.8 mg/dL (8.5-10.1); CARBON DIOXIDE 19 mEq/L (21-32); CREATININE 3.8 mg/dL (0.6-1.3); GLUCOSE 128 mg/dL (70-105); PROTEIN TOTAL 6.8 g/dL (6.0-8.3); UREA NITROGEN BLOOD 39 mg/dL (7-21)
[2023-08-08] MEDS ORDERED: NITROGLYCERIN 0.4MG/HR PATCH TOP ONE (23:45)
[2023-08-08] MEDS ORDERED: NITROGLYCERIN OINT 1GM/INCH UDPKT TD ONE (23:45)
[2023-08-09 00:16] VITALS: BP 180/87; PULSE 69; RESP 18; TEMP 97.6
== END 2023-08-09 03:43 | disposition short-term general hospital (02) ==
LOC: ER 17:17 → EDBEDREQ 18:13 → ER 08-09 03:43
DX: I12.0 Hypertensive chronic kidney disease with stage 5 chronic kidney disease or end stage renal disease (principal); N18.6 End stage renal disease; E11.22 Type 2 diabetes mellitus with diabetic chronic kidney disease; J90 Pleural effusion, not elsewhere classified; J45.909 Unspecified asthma, uncomplicated; F19.90 Other psychoactive substance use, unspecified, uncomplicated; Z99.2 Dependence on renal dialysis
CPT/HCPCS: 36415; 71260; 73502; 74177; 80053; 85025; 96374; 96375; 99285; J2270; J2405